=== PATIENT | male | born 2000 | race Caucasian/White ===

== ENCOUNTER 2018-02-20 20:43 | Emergency (ER) | payer BC, OTHER ==
[2018-02-20] MEDS ORDERED: Hydrocortisone/Neomycin/Polymyxin B Ophth Susp 7.5 ML Bottle ONE (21:28)
[2018-02-20 22:07] VITALS: BP 119/70
--- NOTE | 2018-02-23 09:09 | ER ---
DATE SEEN: 02/20/2018 TIME SEEN: 2100 hours. CHIEF COMPLAINT: Pain, eye. HISTORY OF PRESENT ILLNESS: This is a 17-year-old complaining of pain in the right eye since this morning, started after a piece of metal hit the eye while at work. He went to [place] [facility] where he was told that there was nothing wrong. He was told to use Refresh tears, but his pain is persisting. Pain is moderate associated with redness and drainage. No vomiting and no headaches. PAST MEDICAL HISTORY: No active medical problems. He does not wear any contact lenses and he has no previous eye complaints. SOCIAL HISTORY: Noncontributory. PHYSICAL EXAMINATION: GENERAL: He is not in distress. VITAL SIGNS: He has a normal blood pressure and temperature. HEENT: Eyes, visual acuity 20/30 on the right. Pupils are equal. There is mild conjunctival redness in both eyes, worse on the right. I examined the eye thoroughly, but did not see any foreign bodies. I used a Wood's lamp and did not see any scratches either. IMPRESSION: Eye pain, possibly due to trauma. PLAN: I gave him Cortisporin drops, 2 drops 3 times a day to the right eye. I advised him to go to ER in [place] if symptoms are not improved in a few hours. /[id number] NOEL/FERNANDO
--- NOTE | 2018-02-23 10:47 | CR ---
INDICATION: Was around sanding/grinding of a metal odalis, right eye red and irritated. ORBITS: Four images of the orbits were obtained in frontal and lateral projections and revealed no evidence of a radiopaque foreign body - no metallic foreign bodies were identified. Paranasal sinuses appear to be fairly well aerated. IMPRESSION: No evidence of radiopaque foreign bodies. MTDD
== END 2018-02-20 21:40 | disposition home or self-care (01) ==
LOC: FB.ED 20:43
DX: H57.11 Ocular pain, right eye (principal); W22.8XXA Striking against or struck by other objects, initial encounter; Y99.0 Civilian activity done for income or pay
CPT/HCPCS: 70030; 99282; A9270

== ENCOUNTER 2018-04-07 | Emergency (ER) | payer SELFPAY ==
--- NOTE | 2018-04-07 00:26 | EDM.PDOC ---
ED HPI GENERAL MEDICAL PROBLEM - General Chief Complaint: General Stated Complaint: NOT FEELING GOOD Time Seen by Provider: 04/07/18 00:10 Source of Information: Reports: Patient History Limitations: Reports: No Limitations - History of Present Illness INITIAL COMMENTS - FREE TEXT/NARRATIVE: Siva comes to [facility] ED "not feeling good" after ingestion of unknown substance about 2 days ago. Sxs over the past 36 hours include sharp precordial chest pain , not aggravated with recumbency or improved with sitting up. There is similar pain in the neck and upper back. There is no fever, sweats, dyspnea, cough, wheezing, or milagros pleurisy. There is no headache, dizziness, change in hearing or vision, nausea or vomiting, palpitatons, tremor, loss of balance or coordination, visual or auditory hallucination, paranoia, elated or depressed mood. His last cannabis use was 2 weeks ago. Of interest is a PMH of suspected myocarditis during 2013, studied in [place] and in [place]. generalized Pain Score (Numeric/FACES): 10 - Related Data Allergies Allergy/AdvReac Type Severity Reaction Status Date / Time No Known Allergies Allergy Verified 04/07/18 00:08 Home Meds: Home Meds NK [No Known Home Meds] 04/07/18 [History] Past Medical History - Past Health History Medical/Surgical History: Denies Medical/Surgical History Cardiovascular History: Reports: Other (See Below) Other Cardiovascular History: heart tissue damage - Past Surgical History GI Surgical History: Reports: Cholecystectomy, Other (See Below) Other GI Surgeries/Procedures: Spleenectomy Dermatological Surgical History: Reports: Other (See Below) Social & Family History - Family History Family Medical History: Noncontributory - Tobacco Use Smoking Status *Q: Current Every Day Smoker Years of Tobacco use: 5 Packs/Tins Daily: 0.5 - Caffeine Use Caffeine Use: Reports: Coffee - Alcohol Use Days Per Week of Alcohol Use: 1 Number of Drinks Per Day: 1 Total Drinks Per Week: 1 - Recreational Drug Use Recreational Drug Use: No ED ROS GENERAL - Review of Systems Review Of Systems: See Below Constitutional: Reports: Malaise HEENT: Reports: No Symptoms Respiratory: Reports: No Symptoms Cardiovascular: Reports: Chest Pain Endocrine: Reports: No Symptoms GI/Abdominal: Reports: No Symptoms : Reports: No Symptoms Musculoskeletal: Reports: Neck Pain, Back Pain Skin: Reports: No Symptoms Neurological: Reports: No Symptoms Psychiatric: Reports: No Symptoms Hematologic/Lymphatic: Reports: No Symptoms Immunologic: Reports: No Symptoms ED EXAM, GENERAL - Physical Exam Exam: See Below Exam Limited By: No Limitations General Appearance: Alert, WD/WN, Anxious, Mild Distress Eye Exam: Bilateral Eye: EOMI, Normal Inspection, PERRL Ears: Normal External Exam Nose: Normal Inspection Throat/Mouth: Normal Inspection, Normal Lips, Normal Teeth, Normal Gums, Normal Oropharynx, Normal Voice, No Airway Compromise Head: Normocephalic Neck: Normal Inspection, Supple, Non-Tender, Full Range of Motion Respiratory/Chest: No Respiratory Distress, Lungs Clear, Normal Breath Sounds, No Accessory Muscle Use, Chest Non-Tender Cardiovascular: Normal Peripheral Pulses, Regular Rate, Rhythm, No Edema, No Gallop, No JVD, No Murmur, No Rub GI/Abdominal: Normal Bowel Sounds, Soft, Non-Tender, No Organomegaly, No Distention, No Mass Back Exam: Normal Inspection, Full Range of Motion Extremities: Normal Inspection, Normal Range of Motion, Non-Tender Neurological: Alert, Oriented, CN II-XII Intact, Normal Cognition, Normal Gait, Normal Reflexes, No Motor/Sensory Deficits Psychiatric: Normal Affect, Anxious Skin Exam: Warm, Dry, Intact, Normal Color, No Rash Lymphatic: No Adenopathy Course - Vital Signs Text/Narrative:: Following assessment at the [facility] ED, a [address]-T wave elevations of Leads I,II, AVL, and all precordial leads, suggestive of pericarditis. A review of ekgs from 2013 and 2017 noted similar findings. He was placed on executive officer, IV started in LUE, and Toradol 30 mg IV administered with pain at 10/10 improving to 5-6/10 over the next 45 minutes. A portable chest x ray noted normal cardiac size, no active infiltrates. Subsequent labs noted Troponin I 61.17, CRP 7; d-dimer .63; Hgb 19.2 gm, WBC 23,500, plts 380,000; AST 188, ALT 59; Bili 2.6, Na 140, K 3.0 Case was discussed with Dr Allred at [facility], and Siva will be transferred by ground ambulance for further evaluation and treatment. Last Recorded V/S: Last Vital Signs Temp 37.0 C 04/07/18 00:00 Pulse 93 04/07/18 00:00 Resp 20 04/07/18 00:00 BP 131/78 04/07/18 00:00 Pulse Ox 100 04/07/18 00:00 - Orders/Labs/Meds Orders: Active Orders 24 hr Category Date Time Status EKG Documentation Completion [RC] ASDIRECTED Care 04/07/18 00:22 Active Chest 1V Frontal [CR] Stat Exams 04/07/18 00:31 Taken DRUG SCREEN, URINE ALERE [URCHEM] Stat Lab 04/07/18 00:20 Ordered Sodium Chloride 0.9% [Saline Flush] Med 04/07/18 00:45 Active 10 ml FLUSH ASDIRECTED PRN Peripheral IV Insertion Adult [OM.PC] Routine Oth 04/07/18 00:45 Ordered EKG 12 Lead [EK] Routine Ther 04/07/18 00:22 Ordered Medication Orders Sodium Chloride (Saline Flush) 10 ml FLUSH ASDIRECTED PRN PRN Reason: Keep Vein Open Last Admin: 04/07/18 00:50 Dose: 10 ml Labs: Laboratory Tests 04/07/18 04/07/18 04/07/18 Range/Units 00:20 01:00 01:00 WBC 23.5 H (4.5-12.0) X10-3/uL RBC 5.74 (4.30-5.75) x10(6)uL Hgb 19.2 H (11.5-15.5) g/dL Hct 53.3 H (30.0-51.3) % MCV 92.9 (80-96) fL MCH 33.5 (27.7-33.6) pg MCHC 36.1 H (32.2-35.4) g/dL RDW 14.7 (11.5-15.5) % Plt Count 380 H (125-369) X10(3)uL MPV 9.2 (7.4-10.4) fL Add Manual Diff Yes Neutrophils % (Manual) 75 (46-82) % Band Neutrophils % 3 (0-6) % Lymphocytes % (Manual) 15 (13-37) % Monocytes % (Manual) 5 (4-12) % Eosinophils % (Manual) 2 (0-5) % ESR 1 (0-15) mm/hr D-Dimer, Quantitative (0.0-0.59) mg/LFEU Sodium 140 (135-145) mmol/L Potassium 3.0 L (3.5-5.3) mmol/L Chloride 103 (100-110) mmol/L Carbon Dioxide 27 (21-32) mmol/L BUN 13 (7-18) mg/dL Creatinine 1.0 (0.70-1.30) mg/dL Est Cr Clr Drug Dosing 106.72 mL/min Estimated GFR (MDRD) > 60 (>60) BUN/Creatinine Ratio 13.0 (9-20) Glucose 129 H (80-116) mg/dL Calcium 8.8 (8.2-10.1) mg/dL Total Bilirubin 2.6 H (0.1-1.2) mg/dL AST 188 H* (5-25) IU/L ALT 59 H (12-36) U/L Alkaline Phosphatase 77 (56-112) IU/L Troponin I (<0.017-0.056) ng/mL C-Reactive Protein (0.5-0.9) mg/dL Total Protein 6.9 (6.0-8.0) g/dL Albumin 3.4 (3.2-4.5) g/dL Globulin 3.5 g/dL Albumin/Globulin Ratio 1.0 Urine Opiates Screen Negative (NEGATIVE) Ur Oxycodone Screen Negative (NEGATIVE) Ur Propoxyphene Screen Negative (NEGATIVE) Ur Barbituates Screen Negative (NEGATIVE) Ur Tricyclics Screen Negative (NEGATIVE) Ur Phencyclidine Scrn Negative (NEGATIVE) Ur Amphetamine Screen Negative (NEGATIVE) Urine MDMA Screen Negative (NEGATIVE) U Benzodiazepines Scrn Positive H (NEGATIVE) U Cocaine Metab Screen Negative (NEGATIVE) U Marijuana (THC) Screen Negative (NEGATIVE) 04/07/18 04/07/18 Range/Units 01:00 01:00 WBC (4.5-12.0) X10-3/uL RBC (4.30-5.75) x10(6)uL Hgb (11.5-15.5) g/dL Hct (30.0-51.3) % MCV (80-96) fL MCH (27.7-33.6) pg MCHC (32.2-35.4) g/dL RDW (11.5-15.5) % Plt Count (125-369) X10(3)uL MPV (7.4-10.4) fL Add Manual Diff Neutrophils % (Manual) (46-82) % Band Neutrophils % (0-6) % Lymphocytes % (Manual) (13-37) % Monocytes % (Manual) (4-12) % Eosinophils % (Manual) (0-5) % ESR (0-15) mm/hr D-Dimer, Quantitative 0.63 H (0.0-0.59) mg/LFEU Sodium (135-145) mmol/L Potassium (3.5-5.3) mmol/L Chloride (100-110) mmol/L Carbon Dioxide (21-32) mmol/L BUN (7-18) mg/dL Creatinine (0.70-1.30) mg/dL Est Cr Clr Drug Dosing mL/min Estimated GFR (MDRD) (>60) BUN/Creatinine Ratio (9-20) Glucose (80-116) mg/dL Calcium (8.2-10.1) mg/dL Total Bilirubin (0.1-1.2) mg/dL AST (5-25) IU/L ALT (12-36) U/L Alkaline Phosphatase (56-112) IU/L Troponin I 61.170 H* (<0.017-0.056) ng/mL C-Reactive Protein 7.0 H* (0.5-0.9) mg/dL Total Protein (6.0-8.0) g/dL Albumin (3.2-4.5) g/dL Globulin g/dL Albumin/Globulin Ratio Urine Opiates Screen (NEGATIVE) Ur Oxycodone Screen (NEGATIVE) Ur Propoxyphene Screen (NEGATIVE) Ur Barbituates Screen (NEGATIVE) Ur Tricyclics Screen (NEGATIVE) Ur Phencyclidine Scrn (NEGATIVE) Ur Amphetamine Screen (NEGATIVE) Urine MDMA Screen (NEGATIVE) U Benzodiazepines Scrn (NEGATIVE) U Cocaine Metab Screen (NEGATIVE) U Marijuana (THC) Screen (NEGATIVE) Meds: Medications Generic Name Dose Route Start Last Admin Trade Name Freq PRN Reason Stop Dose Admin Sodium Chloride 10 ml 04/07/18 00:45 04/07/18 00:50 Saline Flush FLUSH 10 ml ASDIRECTED PRN Administration Keep Vein Open Discontinued Medications Generic Name Dose Route Start Last Admin Trade Name Freq PRN Reason Stop Dose Admin Ketorolac Tromethamine 30 mg 04/07/18 00:45 04/07/18 00:50 Toradol IVPUSH 04/07/18 00:46 30 mg ONETIME ONE Administration Departure - Departure Time of Disposition: 02:45 Disposition: Against Medical Advice 07 Condition: Fair Clinical Impression: Pericarditis Qualifiers: Pericarditis type: unspecified type Chronicity: unspecified Qualified Code(s): I31.9 - Disease of pericardium, unspecified - Discharge Information Referrals: oJseph Isidro MD [Primary Care Provider] - Forms: ED Department Discharge - Problem List & Annotations (1) Pericarditis SNOMED Code(s): 8554442 Code(s): I31.9 - DISEASE OF PERICARDIUM, UNSPECIFIED Status: Acute Current Visit: Yes Annotation/Comment:: Transfer to [facility] recommended , and Siva is resisting at this time. He has a 7 mos old child at home watched by a friend. The mother is in [place]. His parents are within [address], but they are not answering the phone. He is refusing to see Social Service or the Metal Sash Setter. Siva elects to leave [place] and have a friend drive him and his child to the [facility] ED. We will fax his records to the ED. Qualifiers: Pericarditis type: unspecified type Chronicity: unspecified Qualified Code(s): I31.9 - Disease of pericardium, unspecified - Problem List Review Problem List Initiated/Reviewed/Updated: Yes - My Orders Last 24 Hours: My Active Orders 04/07/18 00:20 DRUG SCREEN, URINE ALERE [URCHEM] Stat 04/07/18 00:22 EKG Documentation Completion [RC] ASDIRECTED EKG 12 Lead [EK] Routine 04/07/18 00:31 Chest 1V Frontal [CR] Stat 04/07/18 00:45 Sodium Chloride 0.9% [Saline Flush] 10 ml FLUSH ASDIRECTED PRN Peripheral IV Insertion Adult [OM.PC] Routine - Assessment/Plan Last 24 Hours: My Active Orders 04/07/18 00:20 DRUG SCREEN, URINE ALERE [URCHEM] Stat 04/07/18 00:22 EKG Documentation Completion [RC] ASDIRECTED EKG 12 Lead [EK] Routine 04/07/18 00:31 Chest 1V Frontal [CR] Stat 04/07/18 00:45 Sodium Chloride 0.9% [Saline Flush] 10 ml FLUSH ASDIRECTED PRN Peripheral IV Insertion Adult [OM.PC] Routine Plan: Follow up with Cardiology at [place].
[2018-04-07] MEDS ORDERED: Sodium Chloride 0.9% 10 ML Syringe FLUSH PRN (00:45)
[2018-04-07] MEDS ORDERED: Ketorolac 30 MG/ML SDV IVPUSH ONE (00:45)
[2018-04-07 03:44] VITALS: BP 130/85
--- NOTE | 2018-04-07 13:45 | CR ---
INDICATION: Possible pericarditis, chest pain and shortness of breath times 1 1 /2 days. CHEST: An AP upright view of the chest was obtained 04/07/2018 and compared with 11/10/2016 and 10/04/2014. The heart does not appear to be increased in size and appears normal in shape. Overlying EKG leads are noted. A definite active infiltrate or effusion was not identified. No evidence of pulmonary vascular congestion was identified. IMPRESSION: Stable chest - no active disease. MTDD
== END 2018-04-07 03:02 | disposition left against medical advice (07) ==
LOC: FB.ED
DX: I31.9 Disease of pericardium, unspecified (principal)
CPT/HCPCS: 36415; 71045; 80053; 80305; 84484; 85025; 85379; 85651; 86140; 93005; 96374; 99285; J1885; J7050

== ENCOUNTER 2019-02-26 04:51 | Emergency (ER) | payer OTHER, BC ==
[2019-02-26] MEDS ORDERED: Aspirin 81 MG Tab.Chew PO ONE (05:20)
--- NOTE | 2019-02-26 05:46 | EDM.PDOC ---
ED HPI GENERAL MEDICAL PROBLEM - General Chief Complaint: Cardiovascular Problem Stated Complaint: CHEST PAIN Time Seen by Provider: 02/26/19 04:55 Source of Information: Reports: Patient History Limitations: Reports: No Limitations - History of Present Illness INITIAL COMMENTS - FREE TEXT/NARRATIVE: 18 y.o.w.m with a h/o myocarditis woke up from sleep this am due to CP left upper chest 06/05, same at it was 03/2018 when he was Dx'd with myocarditis. Pt had a full work at [place] and was recommended high dose of ASA or indomethacin. No N/V/D. No diaphoresis. 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 No other acute med issues. BP 130/70 RR 20 Pulse ox 98% on RA Pulse 72 Temp 36.8 Onset Date: 02/26/19 Onset Time: 01:00 Duration: Hour(s): Location: Reports: Chest Quality: Reports: Dull Severity: Moderate Improves with: Reports: Rest Worsens with: Reports: Movement Context: Reports: Other Associated Symptoms: Reports: No Other Symptoms - Related Data Allergies Allergy/AdvReac Type Severity Reaction Status Date / Time No Known Allergies Allergy Verified 02/26/19 05:08 Home Meds: Home Meds NK [No Known Home Meds] 02/26/19 [History] Past Medical History - Past Health History Medical/Surgical History: Denies Medical/Surgical History Cardiovascular History: Reports: Other (See Below) Other Cardiovascular History: heart tissue damage, PERICARDITIS, MYOCARDITIS Other Hematologic History: SPHEROCYTOSIS - Past Surgical History GI Surgical History: Reports: Cholecystectomy, Other (See Below) Other GI Surgeries/Procedures: Spleenectomy Dermatological Surgical History: Reports: Other (See Below) Social & Family History - Family History Family Medical History: Noncontributory - Tobacco Use Smoking Status *Q: Never Smoker Second Hand Smoke Exposure: No - Caffeine Use Caffeine Use: Reports: Coffee, Soda - Recreational Drug Use Recreational Drug Use: No ED ROS GENERAL - Review of Systems Review Of Systems: See Below Constitutional: Reports: No Symptoms HEENT: Reports: No Symptoms Respiratory: Reports: No Symptoms Cardiovascular: Reports: Chest Pain Endocrine: Reports: No Symptoms GI/Abdominal: Reports: No Symptoms : Reports: No Symptoms Musculoskeletal: Reports: No Symptoms Skin: Reports: No Symptoms Neurological: Reports: No Symptoms Psychiatric: Reports: No Symptoms Hematologic/Lymphatic: Reports: No Symptoms Immunologic: Reports: No Symptoms ED EXAM, GENERAL - Physical Exam Exam: See Below Exam Limited By: No Limitations General Appearance: Alert, WD/WN, Mild Distress Eye Exam: Bilateral Eye: Normal Inspection Ears: Normal External Exam, Normal Canal Ear Exam: Bilateral Ear: Auricle Normal Nose: Normal Inspection, Normal Mucosa Throat/Mouth: Normal Inspection, Normal Lips, Normal Voice, No Airway Compromise Head: Atraumatic, Normocephalic Neck: Normal Inspection, Supple, Non-Tender Respiratory/Chest: No Respiratory Distress, Lungs Clear, Normal Breath Sounds Cardiovascular: Normal Peripheral Pulses, Regular Rate, Rhythm, No Edema Peripheral Pulses: 1+: Brachial (L) GI/Abdominal: Normal Bowel Sounds, Soft, Non-Tender, No Organomegaly (Male) Exam: Deferred Rectal (Males) Exam: Deferred Back Exam: Normal Inspection, Full Range of Motion Extremities: Normal Inspection, Normal Range of Motion, Non-Tender Neurological: Alert, Oriented, CN II-XII Intact, Normal Cognition, Normal Gait Psychiatric: Normal Affect, Normal Mood Skin Exam: Warm, Dry, Intact, Normal Color Lymphatic: No Adenopathy EKG INTERPRETATION EKG Date: 02/26/19 Time: 04:50 Rhythm: NSR Rate (Beats/Min): 77 [place]: Normal P-Wave: Present QRS: RBBB ST-T: Normal QT: Normal Comparison: NA - No Prior EKG Course - Vital Signs Text/Narrative:: 18 y.o.w.m with a h/o myocarditis woke up from sleep this am due to CP left upper chest 06/05, same at it was 03/2018 when he was Dx'd with myocarditis. Pt had a full work at [place] and was recommended high dose of ASA or indomethacin. No N/V/D. No diaphoresis. 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 No other acute med issues. BP 130/70 RR 20 Pulse ox 98% on RA Pulse 72 Temp 36.8 PE: WNWD W M C/O CP 06/05. Does not appear to be in obvious pain. Imaging: CXR: NAD, official report is pending Labs: CBC, BMP, D Dimer neg Troponin neg HGB was 18.8 however UDS pos for THC Impression: UDS pos for THC, H/O Myocarditis Tx: ASA 324 mg Toradol 60 mg, NS 6.40 am Consultation: Dr. Valdez, Hospitalist, [facility]: Pt was dx'd with Endocarditis/Myacarditis 03/2018. Tx recommendation: High dose ASA or indomethacin, recommends to admit pt at [place] for OBS 7.18 am Consultation: Dr. Ackerman, Hospitalist: Transfer pt to [facility] 7.24 am Consultation: Dr. Valdez, Hospitalist, [facility]: Accepted the pt for transfer and further care Reexam: Pt was doing fine, no change of pain. HR was 62 BP 102/67 pulse ox 99% on RA Plan: Transfer to [place] by EMS Last Recorded V/S: Last Vital Signs Temp 36.8 C 02/26/19 04:55 Pulse 52 L 02/26/19 06:36 Resp 18 02/26/19 06:36 BP 93/60 02/26/19 06:36 Pulse Ox 99 02/26/19 06:36 - Orders/Labs/Meds Orders: Active Orders 24 hr Category Date Time Status EKG Documentation Completion [RC] ASDIRECTED Care 02/26/19 05:38 Active Chest 2V [CR] Stat Exams 02/26/19 05:20 Taken EKG 12 Lead [EK] Routine Ther 02/26/19 04:57 Ordered Labs: Laboratory Tests 02/26/19 02/26/19 02/26/19 Range/Units 05:15 05:15 05:15 WBC 11.0 (4.5-12.0) X10-3/uL RBC 5.53 (4.30-5.75) x10(6)uL Hgb 18.8 H (13.5-17.8) g/dL Hct 51.1 (30.0-51.3) % MCV 92.3 (80-96) fL MCH 34.0 H (27.7-33.6) pg MCHC 36.8 H (32.2-35.4) g/dL RDW 13.5 (11.5-15.5) % Plt Count 375 H (125-369) X10(3)uL MPV 9.0 (7.4-10.4) fL Neut % (Auto) 51.1 (46-82) % Lymph % (Auto) 32.4 (13-37) % [place] % (Auto) 11.5 (4-12) % Eos % (Auto) 4 (1.0-5.0) % Baso % (Auto) 2 (0-2) % Neut # (Auto) 5.5 (1.6-8.3) # Lymph # (Auto) 3.6 (0.6-5.0) # [place] # (Auto) 1.3 (0.0-1.3) # Eos # (Auto) 0.4 (0.0-0.8) # Baso # (Auto) 0.2 (0.0-0.2) # D-Dimer, Quantitative 0.27 (0.0-0.59) mg/LFEU Sodium 138 (135-145) mmol/L Potassium 4.2 D (3.5-5.3) mmol/L Chloride 104 (100-110) mmol/L Carbon Dioxide 27 (21-32) mmol/L BUN 15 (7-18) mg/dL Creatinine 0.9 (0.70-1.30) mg/dL Est Cr Clr Drug Dosing TNP Estimated GFR (MDRD) > 60 (>60) BUN/Creatinine Ratio 16.7 (9-20) Glucose 107 (80-116) mg/dL Calcium 9.0 (8.6-10.2) mg/dL Troponin I (<0.017-0.056) ng/mL Urine Color (YELLOW) Urine Appearance (CLEAR) Urine pH (5.0-6.5) Ur Specific [place] (1.010-1.025) Urine Protein (NEGATIVE) mg/dL Urine Glucose (UA) (NORMAL) mg/dL Urine Ketones (NEGATIVE) mg/dL Urine Occult Blood (NEGATIVE) Urine Nitrite (NEGATIVE) Urine Bilirubin (NEGATIVE) Urine Urobilinogen (NEGATIVE) mg/dL Ur Leukocyte Esterase (NEGATIVE) Urine RBC (0-5) Urine WBC (0-5) Ur Squamous Epith Cells (NS,R,O) Urine Bacteria (NS) Urine Opiates Screen (NEGATIVE) Ur Oxycodone Screen (NEGATIVE) Ur Propoxyphene Screen (NEGATIVE) Ur Barbituates Screen (NEGATIVE) Ur Tricyclics Screen (NEGATIVE) Ur Phencyclidine Scrn (NEGATIVE) Ur Amphetamine Screen (NEGATIVE) Urine MDMA Screen (NEGATIVE) U Benzodiazepines Scrn (NEGATIVE) U Cocaine Metab Screen (NEGATIVE) U Marijuana (THC) Screen (NEGATIVE) 02/26/19 02/26/19 02/26/19 Range/Units 05:15 05:55 05:55 WBC (4.5-12.0) X10-3/uL RBC (4.30-5.75) x10(6)uL Hgb (13.5-17.8) g/dL Hct (30.0-51.3) % MCV (80-96) fL MCH (27.7-33.6) pg MCHC (32.2-35.4) g/dL RDW (11.5-15.5) % Plt Count (125-369) X10(3)uL MPV (7.4-10.4) fL Neut % (Auto) (46-82) % Lymph % (Auto) (13-37) % [place] % (Auto) (4-12) % Eos % (Auto) (1.0-5.0) % Baso % (Auto) (0-2) % Neut # (Auto) (1.6-8.3) # Lymph # (Auto) (0.6-5.0) # [place] # (Auto) (0.0-1.3) # Eos # (Auto) (0.0-0.8) # Baso # (Auto) (0.0-0.2) # D-Dimer, Quantitative (0.0-0.59) mg/LFEU Sodium (135-145) mmol/L Potassium (3.5-5.3) mmol/L Chloride (100-110) mmol/L Carbon Dioxide (21-32) mmol/L BUN (7-18) mg/dL Creatinine (0.70-1.30) mg/dL Est Cr Clr Drug Dosing Estimated GFR (MDRD) (>60) BUN/Creatinine Ratio (9-20) Glucose (80-116) mg/dL Calcium (8.6-10.2) mg/dL Troponin I 0.032 (<0.017-0.056) ng/mL Urine Color Yellow (YELLOW) Urine Appearance Clear (CLEAR) Urine pH 6.0 (5.0-6.5) Ur Specific [place] 1.020 (1.010-1.025) Urine Protein Negative (NEGATIVE) mg/dL Urine Glucose (UA) Normal (NORMAL) mg/dL Urine Ketones Negative (NEGATIVE) mg/dL Urine Occult Blood Negative (NEGATIVE) Urine Nitrite Negative (NEGATIVE) Urine Bilirubin Negative (NEGATIVE) Urine Urobilinogen Normal (NEGATIVE) mg/dL Ur Leukocyte Esterase Negative (NEGATIVE) Urine RBC 0-5 (0-5) Urine WBC 0-5 (0-5) Ur Squamous Epith Cells Rare (NS,R,O) Urine Bacteria Rare H (NS) Urine Opiates Screen Negative (NEGATIVE) Ur Oxycodone Screen Negative (NEGATIVE) Ur Propoxyphene Screen Negative (NEGATIVE) Ur Barbituates Screen Negative (NEGATIVE) Ur Tricyclics Screen Negative (NEGATIVE) Ur Phencyclidine Scrn Negative (NEGATIVE) Ur Amphetamine Screen Negative (NEGATIVE) Urine MDMA Screen Negative (NEGATIVE) U Benzodiazepines Scrn Negative (NEGATIVE) U Cocaine Metab Screen Negative (NEGATIVE) U Marijuana (THC) Screen Positive H (NEGATIVE) Meds: Medications Discontinued Medications Generic Name Dose Route Start Last Admin Trade Name Freq PRN Reason Stop Dose Admin Aspirin 324 mg 02/26/19 05:20 02/26/19 05:28 Aspirin PO 02/26/19 05:21 324 mg ONETIME ONE Administration Sodium Chloride 1,000 mls @ 999 mls/hr 02/26/19 06:37 02/26/19 06:55 Normal Saline IV 02/26/19 07:37 999 mls/hr .BOLUS ONE Administration Ketorolac Tromethamine 60 mg 02/26/19 06:25 02/26/19 06:29 Toradol IM 02/26/19 06:26 60 mg ONETIME ONE Administration Departure - Departure Time of Disposition: 08:01 Disposition: DC/Tfer to Acute Hospital 02 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
[2019-02-26] MEDS ORDERED: Ketorolac 60 MG/2 ML SDV IM ONE (06:25)
[2019-02-26 06:37] VITALS: BP 93/60
[2019-02-26] MEDS ORDERED: Sodium Chloride 0.9% 1,000 ML IV ONE (06:37)
--- NOTE | 2019-02-26 11:28 | CR ---
INDICATION: Chest pain, history of endocarditis. CHEST: PA and lateral views of the chest were obtained 02/26/19 and compared with 04/07/18 and 11/10/16. The heart remains normal in size and shape. The mediastinum and bony thorax were unremarkable. Overlying EKG leads are noted. An active infiltrate or effusion was not identified. IMPRESSION: No active disease. MTDD
== END 2019-02-26 09:10 ==
LOC: FB.ED 04:51
DX: I51.4 Myocarditis, unspecified (principal)
CPT/HCPCS: 36415; 71046; 80048; 80305; 81001; 84484; 85025; 85379; 93005; 96360; 96372; 99285; A9270; J1885; J7030

== ENCOUNTER 2019-10-24 20:40 | Emergency (ER) | payer BC, OTHER ==
[2019-10-24] MEDS ORDERED: Penicillin V Potassium 250 MG Tab PO ONE (20:41)
[2019-10-24 21:01] VITALS: BP 144/74; PULSE 83
[2019-10-24] MEDS ORDERED: Ketorolac 30 MG/ML SDV IM ONE (21:19)
--- NOTE | 2019-10-24 21:25 | EDM.PDOC ---
ED HPI GENERAL MEDICAL PROBLEM - General Chief Complaint: ENT Problem Stated Complaint: TOOTH PAIN Time Seen by Provider: 10/24/19 21:10 Source of Information: Reports: Patient History Limitations: Reports: No Limitations - History of Present Illness INITIAL COMMENTS - FREE TEXT/NARRATIVE: Siva comes into [facility] ED with a R upper toothache over the past hour. He tried some oil of cloves and a "red" applicator of anesthetic (?benzocaine) without relief. NSAIDs have not been helping. He is aware of dental pain in the past, but has not seen a dentist. right upper tooth Pain Score (Numeric/FACES): 10 - Related Data Allergies Allergy/AdvReac Type Severity Reaction Status Date / Time No Known Allergies Allergy Verified 02/26/19 05:08 Home Meds: Home Meds NK [No Known Home Meds] 02/26/19 [History] Past Medical History - Past Health History Medical/Surgical History: Denies Medical/Surgical History Cardiovascular History: Reports: Other (See Below) Other Cardiovascular History: heart tissue damage, PERICARDITIS, MYOCARDITIS Other Hematologic History: SPHEROCYTOSIS - Past Surgical History GI Surgical History: Reports: Cholecystectomy, Other (See Below) Other GI Surgeries/Procedures: Spleenectomy Dermatological Surgical History: Reports: Other (See Below) Social & Family History - Family History Family Medical History: Noncontributory - Tobacco Use Smoking Status *Q: Current Every Day Smoker Years of Tobacco use: 1 Packs/Tins Daily: 1 - Caffeine Use Caffeine Use: Reports: Coffee, Soda - Recreational Drug Use Recreational Drug Use: No ED ROS ENT - Review of Systems Review Of Systems: Comprehensive ROS is negative, except as noted in HPI. ED EXAM, ENT - Physical Exam Exam: See Below Exam Limited By: No Limitations General Appearance: Alert, WD/WN, Mild Distress Eye Exam: Bilateral Eye: EOMI, Normal Inspection, PERRL Ears: Normal External Exam, Normal TMs Nose: Normal Inspection Mouth/Throat: Normal Gums, Normal Lips, Normal Oropharynx, Dental Tenderness (# 5 premolar deeply caried and tender to percussion; numerous other teeth caried to varying degrees) Head: Normocephalic Neck: Normal Inspection, Supple, Non-Tender Respiratory/Chest: Lungs Clear Cardiovascular: Regular Rate, Rhythm Back: Normal Inspection Extremities: Normal Inspection Neurological: Alert, Oriented Psychiatric: Normal Affect, Normal Mood Skin: Warm, Dry, Intact Lymphatic: No Adenopathy Course - Vital Signs Text/Narrative:: Following assessment, I administered Toradol 30 mg IM for pain relief. Last Recorded V/S: Last Vital Signs Temp 36.6 C 10/24/19 20:40 Pulse 83 10/24/19 20:40 Resp 17 10/24/19 20:40 BP 144/74 H 10/24/19 20:40 Pulse Ox 99 10/24/19 20:40 Departure - Departure Time of Disposition: 21:30 Disposition: Home, Self-Care 01 Condition: Fair Clinical Impression: Dental caries - Discharge Information *PRESCRIPTION DRUG MONITORING PROGRAM REVIEWED*: Not Applicable *COPY OF PRESCRIPTION DRUG MONITORING REPORT IN PATIENT [facility]: Not Applicable Sepsis Event Note - Evaluation Sepsis Screening Result: No Definite Risk - Focused Exam Vital Signs: Vital Signs Temp Pulse Resp BP Pulse Ox 10/24/19 20:40 36.6 C 83 17 144/74 H 99 Date Exam was Performed: 10/24/19 Time Exam was Performed: 21:19 - Problem List & Annotations (1) Dental caries SNOMED Code(s): 76028476 Code(s): K02.9 - DENTAL CARIES, UNSPECIFIED Status: Acute Current Visit: Yes Annotation/Comment:: I dispensed Pen VK 25 mg taken 2 tabs tid, suggested NSIADS for pain, and follow up with DDS. - Problem List Review Problem List Initiated/Reviewed/Updated: Yes - Assessment/Plan Plan: Follow up with DDS.
== END 2019-10-24 21:31 | disposition home or self-care (01) ==
LOC: FB.ED 20:40
DX: K02.9 Dental caries, unspecified (principal); F17.210 Nicotine dependence, cigarettes, uncomplicated
CPT/HCPCS: 96372; 99282; A9270; J1885